=== PATIENT | female | born 1995 | race African-American/Black ===

== ENCOUNTER 2016-06-11 03:49 | Emergency (ER) | payer SELFPAY ==
[~2016-06-11] VITALS: Ht 175.3 cm; Wt 66.0 kg
[2016-06-11 03:51] VITALS: BP 114/59; PULSE 100; RESP 16; TEMP 97; TEMP 98.4; O2SAT 97
== END 2016-06-11 09:41 | disposition left against medical advice (07) ==
LOC: NED 03:49
DX: R11.10 Vomiting, unspecified (principal)
CPT/HCPCS: 99281; 99283